=== PATIENT | male | born 1990 | race Caucasian/White ===

== ENCOUNTER 2023-07-22 15:59 | Emergency (ER) | payer SELFPAY ==
[2023-07-22 16:01] VITALS: BP 116/73; PULSE 79; RESP 15; TEMP 36.5; O2SAT 99; BMI 19.0
--- NOTE | 2023-07-22 16:37 | ED_ITS ---
Discharge Plan Disposition Patient Disposition: Home, Self-Care Referrals Follow up/Referrals: Provider,Referral, MD [Primary Care Provider] - See instructions Clinical Impressions Clinical Impression: Headache Discharge ED Provider: Carrol Mena General Adult HPI General Chief complaint: Headache Stated complaint: headache, nausea Time Seen by Provider: 07/22/23 16:34 Mode of Arrival: Ambulatory Source of Information: Patient Limitations: No Limitations Description of Symptoms (Recalled from ER Triage Doc. by RN): pt presents to ED wioth c/o headache that began this am approx 0800. pt reports that symptoms have been getting worse throughout the day. History of Present Illness HPI narrative: Patient is a 33-year-old male presented there with a headache. Slowly worsened throughout the day no sudden component to this no neurologic symptoms fevers neck stiffness etc. States he has a history of migraines like this to happen every 3 to 4 months. Tried Tylenol and ibuprofen at home without any significant improvement. Related Data Allergies Allergy/AdvReac Type Severity Reaction Status Date / Time No Known Allergies Allergy Verified 07/22/23 16:55 [facility] Disclaimer: The information contained in this section may have been updated after the sumanth luna was seen, as this information can be updated by other users. Social History Smoking Status: Current every day smoker alcohol intake: never current occupational status: other Travel in the last 8 weeks: None ROS Obtained: Yes All systems reviewed & no additional complaints except as documented Physical Exam General General appearance: alert Respiratory Respiratory exam: Present normal lung sounds bilaterally Cardiovascular Cardiovascular exam: Present regular rate Neurological Exam Neurological exam: Present alert, oriented X3, CN II-XII intact and normal gait; Absent motor sensory deficit Medical Decision Making Wojciech Inquiry Pt receiving controlled substance: No Vital Signs: 07/22/23 16:01 07/22/23 17:31 Temperature 97.7 F Temperature Source Oral Pulse Rate 88 Pulse Rate [Left Radial] 79 Respiratory Rate 15 Blood Pressure 119/74 Blood Pressure [Right Arm] 116/73 Blood Pressure Mean [Right Arm] 87 02 Sat by Pulse Oximetry 99 100 Oxygen Delivery Method Room Air Room Air Orders (Tests/Meds): ED MEDICATIONS Discontinued Medications Generic Name Dose Route Start Last Admin Trade Name Freq PRN Reason Stop Dose Admin Diphenhydramine HCl 25 mg 07/22/23 16:37 07/22/23 16:59 Diphenhydramine 50mg/Ml Vial IV 07/22/23 16:38 25 mg ONCE ONE Administration Lactated Ringer's 1,000 mls @ 999 mls/hr 07/22/23 16:45 07/22/23 17:00 Lactated Ringer's 1000 Ml Bag IV 07/22/23 17:45 999 mls/hr .Q1H1M [place] Administration Ketorolac Tromethamine 15 mg 07/22/23 16:37 07/22/23 16:57 Ketorolac 30mg/Ml Vial IV 07/22/23 16:38 15 mg ONCE ONE Administration Prochlorperazine Edisylate 10 mg 07/22/23 16:37 07/22/23 16:57 Prochlorperazine 10mg/2ml Vial IV 07/22/23 16:38 10 mg ONCE ONE Administration Medical Decision Narrative: 33-year-old male with normal neurologic exam no concerning history or physical exam findings concerning for ELECTROCHEMIST abnormality such as subarachnoid hemorrhage vascular dissection meningitis etc. presenting today with slowly worsening headache likely migraine given the fact that he has these every 3 to 4 months. Will give Toradol Compazine Benadryl IV fluids and reassess. Reassessment 5:51 PM patient feeling much better patient discharged in stable condition return precautions emphasized. Serial neurologic exam is normal. Critical Care Critical Care Time Critical Care Time: No
[2023-07-22] MEDS: PROCHLORPERAZINE 10MG/2ML VIAL 10 MG IV (16:57)
[2023-07-22] MEDS: KETOROLAC 30MG/ML VIAL 15 MG IV (16:57)
[2023-07-22] MEDS: diphenhydrAMINE 50MG/ML VIAL 25 MG IV (16:59)
[2023-07-22] MEDS: LACTATED RINGERS 1000ML 1,000 ML 999 ML IV (17:00)
[2023-07-22 17:31] VITALS: BP 119/74; PULSE 88; O2SAT 100
[2023-07-22 18:11] VITALS: BP 125/79; PULSE 95; RESP 16; TEMP 36.5; O2SAT 100
== END 2023-07-22 18:12 | disposition home or self-care (01) ==
LOC: ER 17:31
PROVIDERS: Emergency Provider Student in an Organized Health Care Education/Training Program
DX: R51.9 Headache, unspecified (principal); F17.200 Nicotine dependence, unspecified, uncomplicated
CPT/HCPCS: 96361; 96374; 96375; 99284